=== PATIENT | female | born 2000 | race American Indian/Alaskan Native ===

== ENCOUNTER 2019-08-12 14:00 | Emergency (ER) | payer SELFPAY ==
--- NOTE | 2019-08-12 14:42 | Emergency Department Report ---
Blank Doc - Documentation Documentation: 18-year-old female that presents with vaginal bleeding. Not sure if she is pr egnanat or not. This initial assessment/diagnostic orders/clinical plan/treatment(s) is/are subject to change based on patient's health status, clinical progression and re- assessment by fellow clinical providers in the ED. Further treatment and workup at subsequent clinical providers discretion. Patient/guardians urged not to elope from the ED as their condition may be serious if not clinically assessed and managed. Initial orders include: 1- Patient sent to [facility] for further evaluation and treatment 2- UA 3- labs
[2019-08-12 15:27] LABS: Basophils # (Auto) 0.1 K/mm3 (0.0-0.1); Basophils % (Auto) 0.9 % (0.0-1.8); Eosinophils # (Auto) 0.4 K/mm3 (0.0-0.4); Eosinophils % (Auto) 5.8 % (0.0-4.3); Hematocrit 37.1 % (30.3-42.9); Hemoglobin 11.9 gm/dl (10.1-14.3); Lymphocytes # (Auto) 3.1 K/mm3 (1.2-5.4); Lymphocytes % (Auto) 41.4 % (13.4-35.0); Mean Corpuscular HGB Conc 32 % (30-34); Mean Corpuscular Volume 75 fl (79-97); Monocytes # (Auto) 0.6 K/mm3 (0.0-0.8); Monocytes % (Auto) 8.1 % (0.0-7.3); Platelet Count 369 K/mm3 (140-440); Red Blood Count 4.92 M/mm3 (3.65-5.03); Red Cell Distribution Width 17.8 % (13.2-15.2)
[2019-08-12 15:54] LABS: Bacteria,Urine 1+ /HPF (Negative); Bilirubin,Urine NEG (Negative); Blood,Urine LG (Negative); Color,Urine Yellow (Yellow); Mucus,Urine FEW /HPF; Protein,Urine <15 mg/dL mg/dL (Negative); Urobilinogen,Urine < 2.0 mg/dL (<2.0)
--- NOTE | 2019-08-12 16:57 | Emergency Department Report ---
ED Female HPI - General Chief complaint: Vaginal Bleeding Stated complaint: POSS MISCARRAGE Time Seen by Provider: 08/12/19 14:38 Source: patient Mode of arrival: Ambulatory Limitations: No Limitations - History of Present Illness Initial comments: 18-year-old female that presents with vaginal bleeding. Not sure if she is or not. Patient last menstrual period was 06/16/2019. Patient is 2 para 1. Patient's currently not on control. Patient reports that this morning she started having mild pelvic cramping started bleeding. MD Complaint: vaginal bleeding, pelvic pain (cramping) -: This morning Location: suprapubic Radiation: non-radiating Severity: mild Quality: cramping Consistency: intermittent Improves with: none Worsens with: none Are you Now?: No Last Menstrual Period: 06/16/19 EDC: 03/22/20 Associated Symptoms: vaginal bleeding, abdominal pain. denies: vaginal discharge, nausea/vomiting, fever/chills, headaches, loss of appetite, dysuria, hematuria - Related Data Sexually active: Yes : 2 Para: 1 Previous Rx's Medication Instructions Recorded Last Taken Type Nitrofurantoin [place]/M-Cryst 100 mg PO Q12HR #20 capsule 08/12/19 Unknown Rx [Macrobid CAP] Allergies Allergy/AdvReac Type Severity Reaction Status Date / Time No Known Allergies Allergy Unverified 08/12/19 14:03 ED Review of Systems ROS: Stated complaint: POSS MISCARRAGE Other details as noted in HPI Comment: All other systems reviewed and negative ED Past Medical Hx - Past Medical History Previous Medical History?: No - Surgical History Past Surgical History?: No - Social History Smoking Status: Never Smoker Substance Use Type: None - Medications Home Medications: Home Medications Medication Instructions Recorded Confirmed Last Taken Type Nitrofurantoin [place]/M-Cryst 100 mg PO Q12HR #20 capsule 08/12/19 Unknown Rx [Macrobid CAP] ED Physical Exam - General Limitations: No Limitations General appearance: alert, in no apparent distress - Head Head exam: Present: atraumatic, normocephalic - Eye Eye exam: Present: normal appearance - ENT ENT exam: Present: mucous membranes moist - Extremities Exam Extremities exam: Present: normal inspection - Back Exam Back exam: Present: normal inspection, full ROM - Neurological Exam Neurological exam: Present: alert, oriented X3, normal gait - Psychiatric Psychiatric exam: Present: normal affect, normal mood - Skin Skin exam: Present: warm, dry, intact, normal color. Absent: rash ED Medical Decision Making - Lab Data Result diagrams: 08/12/19 15:13 Laboratory Tests 08/12/19 08/12/19 08/12/19 15:13 15:13 Unknown WBC 7.6 RBC 4.92 Hgb 11.9 Hct 37.1 MCV 75 L MCH 24 L MCHC 32 RDW 17.8 H Plt Count 369 Lymph % (Auto) 41.4 H [place] % (Auto) 8.1 H Eos % (Auto) 5.8 H Baso % (Auto) 0.9 Lymph # 3.1 [place] # 0.6 Eos # 0.4 Baso # 0.1 Seg Neutrophils % 43.8 Seg Neutrophils # 3.3 HCG, Quant < 2 Urine Color Yellow Urine Turbidity Cloudy Urine pH 6.0 Ur Specific [place] 1.017 Urine Protein <15 mg/dl Urine Glucose (UA) Neg Urine Ketones Neg Urine Blood Lg Urine Nitrite Neg Urine Bilirubin Neg Urine Urobilinogen < 2.0 Ur Leukocyte Esterase Lg Urine WBC (Auto) 17.0 H Urine RBC (Auto) 8.0 U Epithel Cells (Auto) 14.0 H Urine Bacteria (Auto) 1+ Urine Mucus Few Urine Yeast (Budding) 1+ - Medical Decision Making 18-year-old female that presents with vaginal bleeding. Not sure if she is or not. Patient last menstrual period was 06/16/2019. Patient is 2 para 1. Patient's currently not on control. Patient reports that this morning she started having mild pelvic cramping started bleeding. patient has a negative test. Urinalysis looks like she may have a UTI we will treat for that. Critical care attestation.: If time is entered above; I have spent that time in minutes in the direct care of this critically ill patient, excluding procedure time. ED Disposition Clinical Impression: UTI (urinary tract infection), Menstrual period late Disposition: TO HOME OR SELFCARE Is pt being admited?: No Does the pt Need Aspirin: No Condition: Stable Instructions: Urinary Tract Infection in Women (ED) Prescriptions: Nitrofurantoin [place]/M-Cryst [Macrobid CAP] 100 mg PO Q12HR #20 capsule Referrals: [facility] [Provider Group] - 3-5 Days [facility] [Provider Group] - 3-5 Days
== END 2019-08-12 17:13 | disposition home or self-care (01) ==
LOC: ED 14:00
DX: N91.2 Amenorrhea, unspecified (principal); N39.0 Urinary tract infection, site not specified; Z79.899 Other long term (current) drug therapy
CPT/HCPCS: 36415; 81001; 84702; 85025; 87086

== ENCOUNTER 2020-06-13 15:07 | Inpatient (IN) | payer MEDICAID ==
[2020-06-13] MEDS ORDERED: LIDOCAINE (2%) 20 MG/1 ML VIAL 20 ML MDV INFILTRATI ONE (16:12)
[2020-06-13] MEDS ORDERED: fentaNYL 100 MCG/2 ML INJ IV PRN (16:12)
[2020-06-13] MEDS ORDERED: ePHEDrine SULFATE 50 MG/1 ML INJ IV PRN (16:12)
[2020-06-13] MEDS ORDERED: MINERAL OIL 30 ML ORAL LIQD PO PRN (16:12)
[2020-06-13] MEDS ORDERED: TERBUTALINE 1 MG/1 ML INJ SUB-Q PRN (16:12)
[2020-06-13] MEDS ORDERED: AMPICILLIN/NS 2 GM/100 ML 2 GM/100 ML BAG IV ONE (16:12)
--- NOTE | 2020-06-13 16:23 | History and Physical Report ---
History of Present Illness Date of examination: 06/13/20 Date of admission: 06/13/2020 Chief complaint: Contractions History of present illness: 19 year old presents to L&D complaining of contractions since 06:00 am today. Patient denies leaking of water or vaginal bleeding. Patient reports active movement. Patient states she receives care at [facility]; no records are available. EDC is 06/20/2020 by her self report. Patient denies any complications during this . Patient denies any health problems. labs were drawn upon admission. 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 denies: gonorrhea, hepatitis B, hepatitis C, herpes, HIV, syphilis, trichomonas Family/Genetic History: none Social history: lives with family, full code. denies: smoking, alcohol abuse, prescription drug abuse, IV drug use - Obstetrical History Expected Date of Delivery: 06/20/20 Actual Gestation: 39 Week(s) 0 Day(s) : 4 Para: 1 Hx # Term Pregnancies: 1 Number of Pregnancies: 0 Spontaneous Abortions: 2 Induced : 0 Number of Living Children: 1 Medications and Allergies Allergies Allergy/AdvReac Type Severity Reaction Status Date / Time No Known Allergies Allergy Unverified 08/12/19 14:03 Home Medications Medication Instructions Recorded Confirmed Last Taken Type Nitrofurantoin [place]/M-Cryst 100 mg PO Q12HR #20 capsule 08/12/19 Unknown Rx [Macrobid CAP] Active Meds: Active Medications Ephedrine Sulfate (Ephedrine Sulfate) 10 mg IV Q2M PRN PRN Reason: Hypotension Fentanyl (Sublimaze) 100 mcg IV Q2H PRN PRN Reason: Pain,Severe (7-10) LABOR PAIN Lactated Ringer's (Lactated Ringers) 1,000 mls @ 125 mls/hr IV DIRECT CLARISA Oxytocin/Sodium Chloride (Pitocin/Ns 30 Unit/500ml) 30 units in 500 mls @ 40 mls/hr IV TITR CLARISA; Protocol Ampicillin Sodium (Ampicillin/Ns 2 Gm/100 Ml) 2 gm in 100 mls @ 100 mls/hr IV ONCE ONE; Protocol Stop: 06/13/20 17:11 Ampicillin Sodium (Ampicillin/Ns 1 Gm/50 Ml) 1 gm in 50 mls @ 100 mls/hr IV Q 4HR CLARISA; Protocol Lidocaine (Xylocaine 2%) 20 ml INFILTRATI ONCE ONE Stop: 06/13/20 16:13 Mineral Oil (Mineral Oil) 30 ml PO QHS PRN PRN Reason: Constipation Terbutaline Sulfate (Brethine) 0.25 mg SUB-Q ONCE PRN PRN Reason: Hyperstimulation/Hypertonicity Review of Systems All systems: negative (contractions) - Vital Signs Vital signs: Vital Signs Pulse Ox 100 06/13/20 15:37 Temp Pulse Resp BP Pulse Ox 98.4 F 92 H 18 133/74 100 06/13/20 15:38 06/13/20 16:15 06/13/20 15:38 06/13/20 15:38 06/13/20 16:15 - Physical Exam Abdomen: Positive: normal appearance, soft. Negative: distention, tenderness, guarding, rigidity Genitourinary (Female): Positive: normal external genitalia, normal perenium. Negative: perineal/vulvar lesions (no lesions seen on careful exam with bright light) Vagina: Positive: normal moisture Uterus: Positive: enlarged. Negative: tender Anus/Rectum: Positive: normal perianal skin Extremities: Positive: normal. Negative: tenderness, edema - Obstetrical FHR: category 1 Uterine Contraction Monitor Mode: External Cervical Dilatation: 4 Cervical Effacement Percentage: 70 station: -3 Uterine Contraction Pattern: Regular Uterine Contraction Intensity: Moderate Results All other labs normal. Assessment and Plan A: at 39 weeks gestation. Active labor. GBS positive per patient report. No records available. P: Admit. EFM. Draw labs. Request records. GBS prophylaxis.
[2020-06-13] MEDS: LACTATED RINGERS 1,000 ML IV SCH (16:45)
[2020-06-13] MEDS ORDERED: OXYTOCIN DRIP 30 UNITS/500 ML BAG IV SCH (17:00)
[2020-06-13 17:06] LABS: Hematocrit 27.5 % (30.3-42.9); Hemoglobin 8.6 gm/dl (10.1-14.3); Mean Corpuscular HGB Conc 31 % (30-34); Platelet Count 223 K/mm3 (140-440); Red Cell Distribution Width 17.4 % (13.2-15.2)
[2020-06-13 17:07] LABS: Mean Corpuscular Volume 69 fl (79-97)
[2020-06-13 17:32] LABS: Hepatitis C Virus Antibody Non-Reactive (NonReactive)
[2020-06-13] MEDS: AMPICILLIN/NS 1 GM/50 ML 1 GM/50 ML BAG IV SCH (20:29)
[2020-06-14] MEDS: AMPICILLIN/NS 1 GM/50 ML 1 GM/50 ML BAG IV SCH ×2 (00:09→04:53)
[2020-06-14] MEDS: LACTATED RINGERS 1,000 ML IV SCH (00:57)
--- NOTE | 2020-06-14 04:28 | Anesthesia Consultation ---
Anesthesia Consult and Med Hx Date of service: 06/14/20 - Airway Anesthetic Teeth Evaluation: Good ROM Head & Neck: Adequate Mental/Hyoid Distance: Adequate Mallampati Class: Class II Intubation Access Assessment: Probably Good - Pulmonary Exam CTA: Yes - Cardiac Exam Cardiac Exam: RRR - Pre-Operative Health Status ASA Pre-Surgery Classification: ASA2 Proposed Anesthetic Plan: Epidural - Pulmonary Hx Smoking: No Hx Asthma: No COPD: No Hx Pneumonia: No Hx Sleep Apnea: No - Cardiovascular System Hx Hypertension: No Hx Heart Attack/AMI: No Hx Angina: No - Central Nervous System Hx Seizures: No Hx Psychiatric Problems: No - Gastrointestinal Hx Gastroesophageal Reflux Disease: No - Endocrine Hx Renal Disease: No Hx End Stage Renal Disease: No Hx Insulin Dependent Diabetes: No Hx Non-Insulin Dependent Diabetes: No Hx Hypothyroidism: No Hx Hyperthyroidism: No - Hematic Hx Anemia: No Hx Sickle Cell Disease: No - Other Systems Hx Alcohol Use: No
[2020-06-14] MEDS ORDERED: NalbUPHINE 10 MG/1 ML INJ IV PRN (04:29)
[2020-06-14] MEDS ORDERED: ONDANSETRON 4 MG/2 ML INJ IV PRN (04:29)
[2020-06-14] MEDS ORDERED: NALOXONE 2 MG/2 ML INJ IV PRN (04:29)
[2020-06-14] MEDS ORDERED: diphenhydrAMINE 50 MG/ML VIAL IV PRN (04:29)
--- NOTE | 2020-06-14 04:30 | Progress Note ---
Labor Epidural - Labor Epidural Start Time: 04:15 Stop Time: 04:30 Performed by:: COTY ROWE ([facility]) Procedure: Patient is requesting a laboring epidural for laboring pain. Patient IDed, H&P reviewed, all questions and concerns were answered, and consent was signed. Timeout was performed at bedside. Patient in sitting position. Sterile prep and drape was performed. 3ml of 1% lidocaine skin wheal at L[3]- L [4]. 18- gauge Touhy epidural needle was advanced to loss of resistance with air technique. Negative CSF negative blood. Epidural catheter advanced to [12] centimeters. [-] Aspiration [-] test dose. Sterile dressing applied. Patient tolerated procedure.
[2020-06-14] MEDS ORDERED: fentaNYL-BUPIV 2 MCG/ML-0.125% 200 MCG/100 ML BAG EPIDURAL SCH (05:00)
[2020-06-14] MEDS ORDERED: WITCH HAZEL/ GLYCERIN PAD TP PRN (07:12)
[2020-06-14] MEDS ORDERED: LANOLIN/ZINC/DIMETHICONE (LANSINOH) 7 GM TP PRN (07:12)
--- NOTE | 2020-06-14 08:59 | Procedure Note ---
OB Delivery Note - Delivery Date of Delivery: 06/14/20 Surgeon: SYLVIA AG Estimated blood loss: 200cc - Vaginal Delivery presentation: vertex Delivery position: OA Intrapartum events: none Delivery induction: none Delivery monitor: external FHT, external uterine Route of delivery: Delivery placenta: spontaneous Delivery cord: 3 umbilical vessels Episiotomy: none Delivery laceration: 1st degree Delivery repair: vicryl Anesthesia: epidural Delivery comments: Spontaneous vaginal delivery at 06:38 of liveborn male weighing 2.881 kg over 1st degree perineal laceration with apgars of 8/9. Epidural anesthesia. Delivery of baby was atraumatic; no nuchal cord. Baby placed skin to skin with mom immediately after delivery. Spontaneous cry and respirations. Baby suctioned with bulb syringe and dried with warm blankets. 3 vessel cord double clamped and cut. Spontaneous delivery of intact placenta and membranes by weinstein mechanism. EBL 200 cc. Pitocin to IV fluids after delivery of placenta. Fundus firm and midline. Small first degree perineal laceration repaired with 3-0 vicryl in usual sterile fashion. No other lacerations seen. Vaginal sweep negative. Sponge count correct. Mother and baby stable.
--- NOTE | 2020-06-14 10:17 | Post Anesthesia Evaluation ---
- Post Anesthesia Evaluation Patient Participated: Yes Airway Patent: Yes Stable Respiratory Function: Yes Nausea/Vomiting: No Temp > 96.8F: Yes Pain Manageable: Yes Adequeate Hydration: Yes Anesthesia Complications: No Block Receding Appropriately: Yes Patient on Ventilator: No
[2020-06-14] MEDS: FERROUS SULFATE 325 MG TAB PO SCH ×2 (10:21→21:28)
[2020-06-14] MEDS: IBUPROFEN 600 MG TAB PO SCH ×2 (10:24→18:25)
[2020-06-14] MEDS: HYDROcodone/ACETAMINOPHEN 5-325 MG TAB PO PRN ×2 (12:12→21:28)
[2020-06-14 19:29] LABS: Hematocrit 26.4 % (30.3-42.9); Hemoglobin 8.4 gm/dl (10.1-14.3)
[2020-06-14] MEDS ORDERED: MAGNESIUM HYDROXIDE (MOM) ORAL LIQD UDC PO PRN (22:00)
[2020-06-15] MEDS: IBUPROFEN 600 MG TAB PO SCH (05:32)
[2020-06-15] MEDS ORDERED: DIPHtheria,PERTUSSIS(ACELL),TETANUS VACCINE/PF 0.5 ML VIAL IM ONE (06:00)
[2020-06-15] MEDS ORDERED: IRON DEXTRAN COMPLEX 100 MG/2 ML INJ IM SCH (10:40)
[2020-06-15] MEDS: FERROUS SULFATE 325 MG TAB PO SCH (12:14)
[2020-06-15] MEDS: HYDROcodone/ACETAMINOPHEN 5-325 MG TAB PO PRN (12:15)
--- NOTE | 2020-06-15 12:34 | Progress Note ---
Assessment and Plan A: PP Day 1 Asymptomatic Anemia P: Follow routine orders Infed 100mg IM x 1 dose Continue FeSO4 325mg PO BID at home D/C home today per patient request RTO in 6 weeks Subjective - Subjective Date of service: 06/15/20 Patient reports: appetite normal, voiding normally, pain well controlled, flatus, ambulating normally [place]: doing well, nursing well Objective - Vital Signs Latest vital signs: Vital Signs Temp Pulse Resp BP BP Pulse Ox 06/15/20 08:06 98.0 F 67 18 131/88 98 06/15/20 04:39 98.6 F 70 16 114/78 06/14/20 23:58 98.0 F 73 18 115/50 96 06/14/20 20:06 98.0 F 81 18 124/78 100 06/14/20 15:41 97.6 F 82 20 124/74 97 Intake and Output 06/14/20 06/15/20 06/15/20 22:59 06:59 14:59 Intake Total 540 600 Output Total 300 Balance 240 600 Intake: Oral 540 Intake, Free Water 600 Output: Urine 300 Void 300 Other: Total, Intake Amount 300 Total, Output Amount 300 # Voids Void 1 1 - Exam Breasts: Present: normal Cardiovascular: Present: Regular rate, Normal S1, Normal S2 Lungs: Present: Clear to auscultation, Normal air movement Abdomen: Present: normal appearance, soft, normal bowel sounds Uterus: Present: normal, firm, fundal height below umbilicus Extremities: Present: normal - Labs Labs: Abnormal lab results 06/14/20 Range/Units 18:49 Hgb 8.4 L (10.1-14.3) gm/dl Hct 26.4 L (30.3-42.9) %
--- NOTE | 2020-06-15 12:36 | Discharge Summary ---
Providers - Providers Date of Admission: 06/13/20 16:12 Date of discharge: 06/15/20 Attending physician: EBONY HOPKINS Primary care physician: EBONY HOPKINS Hospitalization Reason for admission: active labor Delivery: Episiotomy: none Laceration: 1st degree Other procedures: none complications: none Discharge diagnosis: IUP at term delivered [place] baby: male Condition at discharge: Good Disposition: DC-01 TO HOME OR SELFCARE Plan - Provider Discharge Summary Activity: routine, no sex for 6 weeks, no heavy lifting 4 weeks, no strenuous exercise Diet: routine Instructions: routine Additional instructions: [] Smoking cessation referral if applicable(refer to patient education folder for contact #) [] Refer to [facility]'s [facility] Booklet Call your doctor immediately for: * Fever > 100.5 * Heavy vaginal bleeding ( >1 pad per hour) * Severe persistent headache * Shortness of breath * Reddened, hot, painful area to leg or breast * Drainage or odor from incision. * Keep incision clean and dry at all times and follow doctor's instructions regarding bathing/showering - Follow up plan Follow up: EBONY HOPKINS MD [Primary Care Provider] - 6 Weeks
[2020-06-15 16:59] VITALS: BP 117/75
== END 2020-06-15 18:00 | disposition home or self-care (01) | DRG 775 ==
LOC: TRG 15:07 → APU 15:08 → LD 16:12 → TRG 16:56 → OB 06-14 09:32
PROVIDERS: ADMIT Obstetrics & Gynecology; ATTEND Obstetrics & Gynecology
PROC: 10E0XZZ Delivery of Products of Conception, External Approach (ICD-10-PCS; principal; 2020-06-14)
PROC: 0HQ9XZZ Repair Perineum Skin, External Approach (ICD-10-PCS; 2020-06-14)
PROC: 3E0R3BZ Introduction of Anesthetic Agent into Spinal Canal, Percutaneous Approach (ICD-10-PCS; 2020-06-14)
PROC: 00HU33Z Insertion of Infusion Device into Spinal Canal, Percutaneous Approach (ICD-10-PCS; 2020-06-14)
PROC: 3E0234Z Introduction of Serum, Toxoid and Vaccine into Muscle, Percutaneous Approach (ICD-10-PCS; 2020-06-15)
DX: O99.824 Streptococcus B carrier state complicating childbirth (principal); Z37.0 Single live birth; Z3A.39 39 weeks gestation of pregnancy; Z23 Encounter for immunization; Z20.828 Contact with and (suspected) exposure to other viral communicable diseases; O70.0 First degree perineal laceration during delivery; O90.81 Anemia of the puerperium; D64.9 Anemia, unspecified
CPT/HCPCS: 36415; 85014; 85018; 85027; 86592; 86706; 86762; 86803; 86850; 86900; 86901; 87806; 90715; G0378; A6250; J0290; J3010; J7120; U0003

== ENCOUNTER 2021-10-25 08:47 | Emergency (ER) | payer OTHER, MEDICAID ==
[2021-10-25] MEDS ORDERED: IPRATROPIUM/ALBUTEROL SULFATE 3 ML AMPUL.NEB IH ONE (12:59)
[2021-10-25] MEDS ORDERED: ACETAMINOPHEN W/CODEINE 300-30 MG TAB PO ONE (13:00)
[2021-10-25] MEDS ORDERED: methylPREDNISolone Sod Succinate 125 MG/2 ML INJ IM ONE (13:00)
[2021-10-25] MEDS ORDERED: BENZONATATE 100 MG CAP PO ONE (13:00)
--- NOTE | 2021-10-25 13:34 | XRay Report ---
CHEST 2 VIEWS INDICATION / CLINICAL INFORMATION: sob, fever. COMPARISON: None available. FINDINGS: SUPPORT DEVICES: None. HEART / MEDIASTINUM: No significant abnormality. LUNGS / PLEURA: No significant pulmonary or pleural abnormality. No pneumothorax. ADDITIONAL FINDINGS: No significant additional findings. IMPRESSION: 1. No acute findings. Signer Name: Huang Miguel DO Signed: 10/25/2021 1:30 PM Workstation Name: [id number]
--- NOTE | 2021-10-25 14:01 | Emergency Department Report ---
- General Chief Complaint: Chest Pain Stated Complaint: CHEST PAIN/SOB Time Seen by Provider: 10/25/21 12:35 Source: patient Mode of arrival: Ambulatory Limitations: No Limitations - History of Present Illness Initial Comments: 20-year-old black female with no past medical history presents to the emergency department for evaluation of 1 week history of cough. She states that she has had a nonproductive cough for the past week then this morning she developed chest pain with shortness of breath. She states that she has had intermittent fever. She states that she has not taken any medication at home. She denies any sick contacts. MD Complaint: fever, cough -: Gradual, week(s) (1) Severity: severe Severity scale (0 -10): 10 Quality: aching Consistency: intermittent Worsens With: other Associated Symptoms: fever, myalgias, rhinorrhea, nasal congestion, cough, chest pain, shortness of breath. denies: chills, diaphoresis, headache, sore throat, stiff neck, abdominal pain, nausea, vomiting, diarrhea, dysuria, rash, confusion, weight loss, epistaxis, hoarseness, ear pain - Related Data Previous Rx's Medication Instructions Recorded Last Taken Type Nitrofurantoin [place]/M-Cryst 100 mg PO Q12HR #20 capsule 08/12/19 Unknown Rx [Macrobid CAP] Albuterol Mdi (or & Nicu Only) 2 puff IH QID PRN #8.5 gram 10/25/21 Unknown Rx [ProAir HFA Inhaler] Benzonatate [Tessalon Perles] 100 mg PO Q8HR #21 cap 10/25/21 Unknown Rx Prednisone [predniSONE 10 mg 10 mg PO .TAPER #1 pack 10/25/21 Unknown Rx (6-Day Pack, 21 Tabs)] guaiFENesin/CODEINE [Robitussin AC] 10 ml PO TID PRN #120 ml 10/25/21 Unknown Rx Allergies Allergy/AdvReac Type Severity Reaction Status Date / Time No Known Allergies Allergy Unverified 08/12/19 14:03 ED Review of Systems ROS: Stated complaint: CHEST PAIN/SOB Other details as noted in HPI Comment: All other systems reviewed and negative Constitutional: fever ENT: congestion. denies: throat pain Respiratory: cough, shortness of breath. denies: SOB at rest Cardiovascular: chest pain. denies: palpitations, dyspnea on exertion, orthopnea, edema, syncope, paroxysmal nocturnal dyspnea Gastrointestinal: denies: abdominal pain, nausea, vomiting, diarrhea, hematemesis, melena, hematochezia Genitourinary: denies: urgency, dysuria, frequency, hematuria, discharge Musculoskeletal: denies: back pain Skin: denies: rash, lesions Neurological: headache. denies: weakness, numbness, paresthesias, abnormal gait, vertigo ED Past Medical Hx - Past Medical History Hx Hypertension: No Hx Heart Attack/AMI: No Hx Congestive Heart Failure: No Hx Diabetes: No Hx Deep Vein Thrombosis: No Hx Renal Disease: No Hx Sickle Cell Disease: No Hx Seizures: No Hx Asthma: No Hx COPD: No Hx HIV: No - Social History Smoking Status: Never Smoker - Medications Home Medications: Home Medications Medication Instructions Recorded Confirmed Last Taken Type Nitrofurantoin [place]/M-Cryst 100 mg PO Q12HR #20 capsule 08/12/19 Unknown Rx [Macrobid CAP] Albuterol Mdi (or & Nicu Only) 2 puff IH QID PRN #8.5 gram 10/25/21 Unknown Rx [ProAir HFA Inhaler] Benzonatate [Tessalon Perles] 100 mg PO Q8HR #21 cap 10/25/21 Unknown Rx Prednisone [predniSONE 10 mg 10 mg PO .TAPER #1 pack 10/25/21 Unknown Rx (6-Day Pack, 21 Tabs)] guaiFENesin/CODEINE [Robitussin AC] 10 ml PO TID PRN #120 ml 10/25/21 Unknown Rx ED Physical Exam - General Limitations: No Limitations General appearance: alert, in no apparent distress - Head Head exam: Present: atraumatic, normocephalic - Eye Eye exam: Present: normal appearance. Absent: conjunctival injection - ENT ENT exam: Absent: normal exam (bilateral nasal mucosal edema), normal orophraynx (erythema to posterior orophraynx) - Neck Neck exam: Present: normal inspection. Absent: lymphadenopathy - Respiratory Respiratory exam: Present: normal lung sounds bilaterally, chest wall tenderness. Absent: respiratory distress, wheezes, rales, rhonchi, stridor - Cardiovascular Cardiovascular Exam: Present: tachycardia, normal heart sounds - GI/Abdominal GI/Abdominal exam: Present: soft, normal bowel sounds. Absent: distended, tenderness, guarding, rebound, rigid - Extremities Exam Extremities exam: Present: normal inspection, normal capillary refill. Absent: pedal edema, joint swelling, calf tenderness - Back Exam Back exam: Present: normal inspection. Absent: CVA tenderness (R), CVA tenderness (L) - Neurological Exam Neurological exam: Present: alert, oriented X3, normal gait, reflexes normal. Absent: motor sensory deficit - Psychiatric Psychiatric exam: Present: normal affect, normal mood - Skin Skin exam: Present: warm, dry, intact, normal color ED Course Vital Signs 10/25/21 10/25/21 10/25/21 09:22 13:47 14:28 Temperature 98.9 F Pulse Rate 107 H 85 Pulse Rate [ 110 H Bilateral Throughout] Respiratory 20 18 Rate Respiratory 20 Rate [Bilateral Throughout] Blood Pressure 161/88 157/80 [Right] O2 Sat by Pulse 95 95 Oximetry ED Medical Decision Making - EKG Data Interpretation: no acute changes, normal EKG - Radiology Data Radiology results: report reviewed, image reviewed CXR: FINDINGS: SUPPORT DEVICES: None. HEART / MEDIASTINUM: No significant abnormality. LUNGS / PLEURA: No significant pulmonary or pleural abnormality. No pneumothorax. ADDITIONAL FINDINGS: No significant additional findings. IMPRESSION: 1. No acute findings. - Medical Decision Making 20-year-old black female with no past medical history presents to the emergency department for evaluation of 1 week history of cough. She states that she has had a nonproductive cough for the past week then this morning she developed chest pain with shortness of breath. She states that she has had intermittent fever. She states that she has not taken any medication at home. She denies any sick contacts. EKG and chest xray without any acute abnormalities. Symptoms improved after medications. Patient will be d/batool home with treatment for uri with cough, congestion and wheezing. She is advised to take medications as prescribed and follow up with pcp if no improvement or worsening symptoms. Critical care attestation.: If time is entered above; I have spent that time in minutes in the direct care of this critically ill patient, excluding procedure time. ED Disposition Clinical Impression: URI with cough and congestion, Wheezing Disposition: HOME / SELF CARE / HOMELESS Is pt being admited?: No Does the pt Need Aspirin: No Condition: Stable Instructions: Cough, Adult, [id number], Upper Respiratory Infection, Adult, [id number] Additional Instructions: Take medications as prescribed. Follow-up with primary care provider as needed. Return to the emergency department as needed Prescriptions: Prednisone [predniSONE 10 mg (6-Day Pack, 21 Tabs)] 10 mg PO .TAPER #1 pack Albuterol Mdi (or & Nicu Only) [ProAir HFA Inhaler] 2 puff IH QID PRN #8.5 gram PRN Reason: Shortness Of Breath guaiFENesin/CODEINE [Robitussin AC] 10 ml PO TID PRN #120 ml PRN Reason: Cough Benzonatate [Tessalon Perles] 100 mg PO Q8HR #21 cap Referrals: PRIMARY CARE, [Primary Care Provider] - 3-5 Days Forms: Work/School Release Form(ED) Time of Disposition: 14:03
[2021-10-25 14:32] VITALS: BP 157/80
--- NOTE | 2021-10-28 19:46 | Electrocardiograph Report ---
[facility] Test Date: 2021-10-25 Test Time: 09:46:34 Pat Name: JADE SAINI Department: Room: Gender: F Sales Engineering Manager: CHARLIE : 2000 Requested By: ED DOC Order Number: [id number] Reading MD: Facundo Auguste Measurements Intervals [place] Rate: 92 P: 112 AL: 190 QRS: 167 QRSD: 82 T: 169 QT: 335 QTc: 415 Interpretive Statements Right and left arm electrode reversal, interpretation assumes no reversal Sinus rhythm Right axis deviation Abnormal T, consider ischemia, diffuse leads No previous ECG available for comparison Electronically Signed On 10-28-2021 19:45:45 EDT by Facundo Auguste
== END 2021-10-25 14:33 | disposition home or self-care (01) ==
LOC: ED 08:47
DX: J06.9 Acute upper respiratory infection, unspecified (principal); R06.2 Wheezing
CPT/HCPCS: 71046; 93005; 94640; 96372; 99283; J2930; 94644

== ENCOUNTER 2021-11-08 03:38 | Emergency (ER) | payer OTHER, MEDICAID ==
[2021-11-08] MEDS ORDERED: predniSONE 20 MG TAB PO ONE (03:52)
[2021-11-08] MEDS ORDERED: IPRATROPIUM/ALBUTEROL SULFATE 3 ML AMPUL.NEB IH ONE (03:52)
[2021-11-08] MEDS ORDERED: ALBUTEROL 2.5 MG/3 ML NEBU IH ONE (04:07)
[2021-11-08] MEDS ORDERED: IPRATROPIUM 0.02% NEBU 2.5 ML IH ONE (04:07)
--- NOTE | 2021-11-08 04:27 | XRay Report ---
CHEST 1 VIEW 11/08/2021 4:05 AM INDICATION / CLINICAL INFORMATION: sob. COMPARISON: 2 views of the chest from 10/25/2021. FINDINGS: SUPPORT DEVICES: None. HEART / MEDIASTINUM: No significant abnormality. LUNGS / PLEURA: No significant pulmonary abnormality. No significant pleural effusion. No pneumothora x. ADDITIONAL FINDINGS: No significant additional findings. IMPRESSION: 1. No acute abnormality of the chest. Signer Name: Margarito Bauman MD Signed: 11/08/2021 4:23 AM Workstation Name: [id number]
[2021-11-08] MEDS ORDERED: ACETAMINOPHEN 325 MG TAB PO ONE (06:14)
[2021-11-08] MEDS ORDERED: IBUPROFEN 400 MG TAB PO ONE (06:14)
--- NOTE | 2021-11-08 06:17 | Emergency Department Report ---
ED General Adult HPI - General Chief complaint: Dyspnea/Respdistress Stated complaint: Cough, wheezing, shortness of breath and muscle pain Time Seen by Provider: 11/08/21 06:07 Source: patient, RN notes reviewed Mode of arrival: Ambulatory Limitations: No Limitations - History of Present Illness Initial comments: This is a pleasant 20-year-old female who states that she is not . She is also not COVID-19 vaccinated. She recently relocated to [place] from [facility]. She complains of chest wall tightness, cough, wheezing and shortness of breath. Reports fever recently. Was given albuterol, steroids prior to my personal evaluation. Patient denies travel, surgery, immobilization, DVT/PE risk factors. She reports that she does not smoke cigarettes or consume any smoke products. She feels much improved after her initial therapy. -: week(s) Location: chest, back Quality: aching Consistency: constant Improves with: medication, rest Worsens with: movement, other (Movement, palpation) - Related Data Previous Rx's Medication Instructions Recorded Last Taken Type Nitrofurantoin [place]/M-Cryst 100 mg PO Q12HR #20 capsule 08/12/19 Unknown Rx [Macrobid CAP] Albuterol Mdi (or & Nicu Only) 2 puff IH QID PRN #8.5 gram 10/25/21 Unknown Rx [ProAir HFA Inhaler] Benzonatate [Tessalon Perles] 100 mg PO Q8HR #21 cap 10/25/21 Unknown Rx Prednisone [predniSONE 10 mg 10 mg PO .TAPER #1 pack 10/25/21 Unknown Rx (6-Day Pack, 21 Tabs)] guaiFENesin/CODEINE [Robitussin AC] 10 ml PO TID PRN #120 ml 10/25/21 Unknown Rx Albuterol Sulfate [Proair 90 mcg IH Q4HR PRN #2 aer.pow.ba 11/08/21 Unknown Rx Respiclick] Cetirizine HCl [Zyrtec 10mg tab] 10 mg PO QDAY #30 tablet 11/08/21 Unknown Rx Fluticasone [Flonase] 1 spray NS QDAY #1 bottle 11/08/21 Unknown Rx predniSONE [Deltasone] 40 mg PO QDAY #8 tab 11/08/21 Unknown Rx Allergies Allergy/AdvReac Type Severity Reaction Status Date / Time No Known Allergies Allergy Unverified 08/12/19 14:03 ED Review of Systems ROS: Stated complaint: CHEST PAIN/SOB Other details as noted in HPI Constitutional: fever Eyes: denies: eye discharge ENT: congestion Respiratory: wheezing Cardiovascular: chest pain (Chest wall pain) Musculoskeletal: arthralgia, myalgia Hematological/Lymphatic: denies: easy bleeding ED Past Medical Hx - Past Medical History Previous Medical History?: No Hx Hypertension: No Hx Heart Attack/AMI: No Hx Congestive Heart Failure: No Hx Diabetes: No Hx Deep Vein Thrombosis: No Hx Renal Disease: No Hx Sickle Cell Disease: No Hx Seizures: No Hx Asthma: No Hx COPD: No Hx HIV: No - Surgical History Past Surgical History?: No - Social History Smoking Status: Never Smoker - Medications Home Medications: Home Medications Medication Instructions Recorded Confirmed Last Taken Type Nitrofurantoin [place]/M-Cryst 100 mg PO Q12HR #20 capsule 08/12/19 Unknown Rx [Macrobid CAP] Albuterol Mdi (or & Nicu Only) 2 puff IH QID PRN #8.5 gram 10/25/21 Unknown Rx [ProAir HFA Inhaler] Benzonatate [Tessalon Perles] 100 mg PO Q8HR #21 cap 10/25/21 Unknown Rx Prednisone [predniSONE 10 mg 10 mg PO .TAPER #1 pack 10/25/21 Unknown Rx (6-Day Pack, 21 Tabs)] guaiFENesin/CODEINE [Robitussin AC] 10 ml PO TID PRN #120 ml 10/25/21 Unknown Rx Albuterol Sulfate [Proair 90 mcg IH Q4HR PRN #2 aer.pow.ba 11/08/21 Unknown Rx Respiclick] Cetirizine HCl [Zyrtec 10mg tab] 10 mg PO QDAY #30 tablet 11/08/21 Unknown Rx Fluticasone [Flonase] 1 spray NS QDAY #1 bottle 11/08/21 Unknown Rx predniSONE [Deltasone] 40 mg PO QDAY #8 tab 11/08/21 Unknown Rx ED Physical Exam - General Limitations: No Limitations General appearance: alert, in no apparent distress - Head Head exam: Present: atraumatic, normocephalic - Eye Eye exam: Present: normal appearance, EOMI. Absent: nystagmus - ENT ENT exam: Present: normal exam, normal orophraynx, mucous membranes moist, normal external ear exam - Neck Neck exam: Present: normal inspection, full ROM. Absent: tenderness, meningismus - Respiratory Respiratory exam: Present: normal lung sounds bilaterally, chest wall tenderness. Absent: respiratory distress, wheezes, rales, rhonchi, stridor - Cardiovascular Cardiovascular Exam: Present: regular rate, normal rhythm, normal heart sounds. Absent: bradycardia, tachycardia, irregular rhythm, systolic murmur, diastolic murmur, rubs, gallop - GI/Abdominal GI/Abdominal exam: Present: soft. Absent: distended, tenderness, guarding, rebo und, rigid, pulsatile mass - Extremities Exam Extremities exam: Present: normal inspection, full ROM, other (2+ pulses noted in the bilateral upper and lower extremities. There is no palpable cord. negative Homans sign. Muscular compartments are soft. The pelvis is stable.). Absent: pedal edema, calf tenderness - Back Exam Back exam: Present: normal inspection, muscle spasm. Absent: tenderness, CVA tenderness (R), paraspinal tenderness, vertebral tenderness - Neurological Exam Neurological exam: Present: alert, oriented X3, other (No facial droop. Tongue midline. Extraocular movements intact bilaterally. Facial sensation intact to light touch in V1, V2, V3 distribution bilaterally. 5 and a 5 strength in 4 extremities. Sensation intact to light touch in 4 extremities.). Absent: motor sensory deficit - Psychiatric Psychiatric exam: Present: normal affect, normal mood - Skin Skin exam: Present: warm, dry, intact, normal color. Absent: rash ED Course Vital Signs 11/08/21 11/08/21 11/08/21 03:42 03:45 04:37 Temperature 98.2 F Pulse Rate 109 H 90 Pulse Rate [ Bilateral Throughout] Respiratory 20 18 18 Rate Respiratory Rate [Bilateral Throughout] Blood Pressure 157/105 Blood Pressure 125/87 [Right] O2 Sat by Pulse 97 99 97 Oximetry 11/08/21 11/08/21 11/08/21 05:00 05:37 06:00 Temperature Pulse Rate 92 H 99 H Pulse Rate [ 86 Bilateral Throughout] Respiratory 18 18 Rate Respiratory 20 Rate [Bilateral Throughout] Blood Pressure Blood Pressure 132/81 137/87 [Right] O2 Sat by Pulse 96 98 Oximetry - Pulse Oximetry Interpretation Digit-Finger Initial Pulse Oximetry Readin O2 Sat by Pulse Oximetry: 99 Actions Taken: none ED Medical Decision Making - Lab Data Vital Signs 11/08/21 11/08/21 11/08/21 03:42 03:45 05:37 Temperature 98.2 F Pulse Rate 109 H Pulse Rate [ 86 Bilateral Throughout] Respiratory 20 18 Rate Respiratory 20 Rate [Bilateral Throughout] Blood Pressure 157/105 O2 Sat by Pulse 97 99 Oximetry - EKG Data -: EKG Interpreted by [place] EKG shows normal: sinus rhythm Rate: normal - EKG Data 11/08/21 07:06 The EKG is interpreted at 06: 19 Sinus rhythm, 83 bpm. Normal axis, normal P wave axis, normal intervals, minimal motion artifact, not a STEMI - Radiology Data Radiology results: pending, report reviewed, image reviewed CHEST 1 VIEW 11/08/2021 4:05 AM INDICATION / CLINICAL INFORMATION: sob. COMPARISON: 2 views of the chest from 10/25/2021. FINDINGS: SUPPORT DEVICES: None. HEART / MEDIASTINUM: No significant abnormality. LUNGS / PLEURA: No significant pulmonary abnormality. No significant pleural effusion. No pneumothorax. ADDITIONAL FINDINGS: No significant additional findings. IMPRESSION: 1. No acute abnormality of the chest. Signer Name: Margarito Bauman MD Signed: 11/08/2021 3:23 AM Workstation Name: [id number] - Medical Decision Making Differential diagnosis, including but not limited to: Costochondritis, reactive airways disease, COVID-19 vaccination not done Assessment and plan: 20-year-old female who recently relocated here from [place], presenting to [place] now, with a complaint of cough, wheezing, chest wall tightness, likely secondary to reactive airways disease, likely secondary to allergies. Patient educated as to the natural history of bronchitis/reactive airway disease and allergies. Patient counseled to complete COVID-19 vaccination series. Chest x-ray unremarkable. EKG unremarkable. Patient received albuterol and steroids prior to my personal evaluation. She is not currently tachycardic, tachypneic or hypoxic, she denies DVT/PE risk factors, and she is low risk by Wells criteria. The patient is observed in this department for hours without clinical decompensation. She is stable to be discharged to follow-up as an outpatient. Return precautions reviewed. All questions answered. Critical care attestation.: If time is entered above; I have spent that time in minutes in the direct care of this critically ill patient, excluding procedure time. ED Disposition Clinical Impression: Reactive airway disease, COVID-19 vaccination not done Disposition: 01 HOME / SELF CARE / HOMELESS Is pt being admited?: No Does the pt Need Aspirin: No Condition: Stable Instructions: Asthma, Adult Additional Instructions: As we discussed, patient likely experiencing natural history of costochondritis, and reactive airways disease, secondary to recent relocation to [place], likely secondary to local allergens such as pollen. Symptoms may last anywhere from a few weeks to a few months. Strongly recommend that the patient follow-up with an outpatient primary care doctor to establish outpatient primary care. Patient may take [id number] Tylenol or ibuprofen as needed for physical pain. Patient may take Tylenol, 650 mg by mouth, every 4-6 hours as needed for physical pain, Daily dose should not exceed 3 g per 24 hours. Patient may take ibuprofen, 600 mg by mouth, every 6 hours with food, as needed for physical pain. Please take the steroids, and albuterol as needed and directed. Take Zyrtec as directed. Please return to the emergency room right away with new pain, worsened pain, migration of pain, projectile vomiting, change in mental status, confusion, inability tolerate liquid feeds, new, worsened or different symptoms not present on the initial emergency room evaluation Prescriptions: predniSONE [Deltasone] 40 mg PO QDAY #8 tab Fluticasone [Flonase] 1 spray NS QDAY #1 bottle Albuterol Sulfate [Proair Respiclick] 90 mcg IH Q4HR PRN #2 aer.pow.ba PRN Reason: Wheezing Cetirizine HCl [Zyrtec 10mg tab] 10 mg PO QDAY #30 tablet Referrals: [facility] [Provider Group] - 3-5 Days Forms: Work/School Release Form(ED)
[2021-11-08 07:37] VITALS: BP 136/92
--- NOTE | 2021-11-10 17:44 | Electrocardiograph Report ---
[facility] Test Date: 2021-11-08 Test Time: 06:19:00 Pat Name: JADE SAINI Department: Room: Gender: F Boat Repairer: SHAWN MATTA : 2000 Requested By: WILMER KUMAR Order Number: [id number] Reading MD: Facundo Auguste Measurements Intervals [place] Rate: 83 P: 53 SC: 195 QRS: 29 QRSD: 91 T: 20 QT: 370 QTc: 436 Interpretive Statements Marked sinus arrhythmia Compared to ECG 10/25/2021 09:46:34 Limb leads are malpositioned on the previous EKG Electronically Signed On 11-10-2021 17:44:20 EDT by Facundo Auguste
== END 2021-11-08 07:37 | disposition home or self-care (01) ==
LOC: ED 03:38
DX: J45.901 Unspecified asthma with (acute) exacerbation (principal); Z79.899 Other long term (current) drug therapy
CPT/HCPCS: 71045; 93005; 94640; 94644; 99283

== ENCOUNTER 2022-03-10 18:28 | Emergency (ER) | payer OTHER, MEDICAID ==
[2022-03-10] MEDS ORDERED: methylPREDNISolone Sod Succinate 125 MG/2 ML INJ IV ONE (18:43)
[2022-03-10] MEDS ORDERED: ALBUTEROL 2.5 MG/3 ML NEBU IH ONE ×2 (18:43→19:08)
[2022-03-10] MEDS ORDERED: SODIUM CHLORIDE 0.9% 1000 ML 1,000 ML IV ONE (18:43)
[2022-03-10] MEDS ORDERED: IPRATROPIUM 0.02% NEBU 2.5 ML IH ONE ×2 (18:43→19:08)
[2022-03-10 19:37] LABS: Basophils # (Auto) 0.1 K/mm3 (0.0-0.1); Basophils % (Auto) 0.7 % (0.0-1.8); Eosinophils # (Auto) 0.1 K/mm3 (0.0-0.4); Eosinophils % (Auto) 0.7 % (0.0-4.3); Hematocrit 41.7 % (30.3-42.9); Hemoglobin 13.4 gm/dl (10.1-14.3); Lymphocytes # (Auto) 1.3 K/mm3 (1.2-5.4); Lymphocytes % (Auto) 11.2 % (13.4-35.0); Mean Corpuscular HGB Conc 32 % (30-34); Mean Corpuscular Volume 79 fl (79-97); Monocytes # (Auto) 1.1 K/mm3 (0.0-0.8); Monocytes % (Auto) 9.4 % (0.0-7.3); Platelet Count 351 K/mm3 (140-440); Red Cell Distribution Width 15.5 % (13.2-15.2)
[2022-03-10 20:00] LABS: Alanine Aminotransferase 18 units/L (7-56); Albumin 4.5 g/dL (3.9-5); Blood Urea Nitrogen 8 mg/dL (7-17); Calcium 9.4 mg/dL (8.4-10.2); Hemolysis Index 78
[2022-03-10 20:03] LABS: Creatine Kinase MB 1.6 ng/mL (0.0-4.0)
[2022-03-10 20:04] LABS: BUN/Creatinine Ratio 13
--- NOTE | 2022-03-10 20:09 | XRay Report ---
CHEST 1 VIEW INDICATION / CLINICAL INFORMATION: Dyspnea. FINDINGS: SUPPORT DEVICES: None. HEART / MEDIASTINUM: No significant abnormality. LUNGS / PLEURA: No significant pulmonary or pleural abnormality. No pneumothorax. ADDITIONAL FINDINGS: No significant additional findings. IMPRESSION: 1. No acute findings. Signer Name: Alphonse Almaraz MD Signed: 03/10/2022 8:05 PM Workstation Name: [id number]
--- NOTE | 2022-03-10 20:18 | Emergency Department Report ---
ED Shortness of Breath HPI - General Chief Complaint: Dyspnea/Respdistress Stated Complaint: NOLBERTO/CHEST PAIN Time Seen by Provider: 03/10/22 18:40 Source: patient Mode of arrival: Ambulatory Limitations: No Limitations - History of Present Illness Initial Comments: Patient present with NOLBERTO, and chest pain. pt is known to have wheeze before but no diagnosis of asthma MD Complaint: shortness of breath -: Gradual, days(s) Worsens With: exertion Known History Of: other Associated Symptoms: chest pain Treatments Prior to Arrival: oxygen - Related Data Previous Rx's Medication Instructions Recorded Last Taken Type Nitrofurantoin [place]/M-Cryst 100 mg PO Q12HR #20 capsule 08/12/19 Unknown Rx [Macrobid CAP] Albuterol Mdi (or & Nicu Only) 2 puff IH QID PRN #8.5 gram 10/25/21 Unknown Rx [ProAir HFA Inhaler] Benzonatate [Tessalon Perles] 100 mg PO Q8HR #21 cap 10/25/21 Unknown Rx Prednisone [predniSONE 10 mg 10 mg PO .TAPER #1 pack 10/25/21 Unknown Rx (6-Day Pack, 21 Tabs)] guaiFENesin/CODEINE [Robitussin AC] 10 ml PO TID PRN #120 ml 10/25/21 Unknown Rx Albuterol Sulfate [Proair 90 mcg IH Q4HR PRN #2 aer.pow.ba 11/08/21 Unknown Rx Respiclick] Cetirizine HCl [Zyrtec 10mg tab] 10 mg PO QDAY #30 tablet 11/08/21 Unknown Rx Fluticasone [Flonase] 1 spray NS QDAY #1 bottle 11/08/21 Unknown Rx predniSONE [Deltasone] 40 mg PO QDAY #8 tab 11/08/21 Unknown Rx Allergies Allergy/AdvReac Type Severity Reaction Status Date / Time No Known Allergies Allergy Verified 03/10/22 18:38 ED Review of Systems ROS: Stated complaint: NOLBERTO/CHEST PAIN Other details as noted in HPI Constitutional: denies: chills, fever Eyes: denies: eye pain, eye discharge, vision change ENT: denies: ear pain, throat pain Respiratory: denies: cough, shortness of breath, wheezing Cardiovascular: denies: chest pain, palpitations Endocrine: no symptoms reported Gastrointestinal: denies: abdominal pain, nausea, diarrhea Genitourinary: denies: urgency, dysuria, discharge Musculoskeletal: denies: back pain, joint swelling, arthralgia Skin: denies: rash, lesions Neurological: denies: headache, weakness, paresthesias Psychiatric: denies: anxiety, depression Hematological/Lymphatic: denies: easy bleeding, easy bruising ED Past Medical Hx - Past Medical History Previous Medical History?: Yes Hx Hypertension: No Hx Heart Attack/AMI: No Hx Congestive Heart Failure: No Hx Diabetes: No Hx Deep Vein Thrombosis: No Hx Renal Disease: No Hx Sickle Cell Disease: No Hx Seizures: No Hx Asthma: No Hx COPD: No Hx HIV: No - Surgical History Past Surgical History?: No - Social History Smoking Status: Never Smoker Substance Use Type: None - Medications Home Medications: Home Medications Medication Instructions Recorded Confirmed Last Taken Type Nitrofurantoin [place]/M-Cryst 100 mg PO Q12HR #20 capsule 08/12/19 Unknown Rx [Macrobid CAP] Albuterol Mdi (or & Nicu Only) 2 puff IH QID PRN #8.5 gram 10/25/21 Unknown Rx [ProAir HFA Inhaler] Benzonatate [Tessalon Perles] 100 mg PO Q8HR #21 cap 10/25/21 Unknown Rx Prednisone [predniSONE 10 mg 10 mg PO .TAPER #1 pack 10/25/21 Unknown Rx (6-Day Pack, 21 Tabs)] guaiFENesin/CODEINE [Robitussin AC] 10 ml PO TID PRN #120 ml 10/25/21 Unknown Rx Albuterol Sulfate [Proair 90 mcg IH Q4HR PRN #2 aer.pow.ba 11/08/21 Unknown Rx Respiclick] Cetirizine HCl [Zyrtec 10mg tab] 10 mg PO QDAY #30 tablet 11/08/21 Unknown Rx Fluticasone [Flonase] 1 spray NS QDAY #1 bottle 11/08/21 Unknown Rx predniSONE [Deltasone] 40 mg PO QDAY #8 tab 11/08/21 Unknown Rx ED Physical Exam - General Limitations: No Limitations General appearance: alert, in no apparent distress - Head Head exam: Present: atraumatic, normocephalic - Eye Eye exam: Present: normal appearance - ENT ENT exam: Present: mucous membranes moist - Neck Neck exam: Present: normal inspection - Respiratory Respiratory exam: Present: normal lung sounds bilaterally, wheezes. Absent: respiratory distress - Cardiovascular Cardiovascular Exam: Present: normal rhythm, tachycardia. Absent: systolic murmur, diastolic murmur, rubs, gallop - GI/Abdominal GI/Abdominal exam: Present: soft, normal bowel sounds - Extremities Exam Extremities exam: Present: normal inspection - Back Exam Back exam: Present: normal inspection - Neurological Exam Neurological exam: Present: alert, oriented X3 - Psychiatric Psychiatric exam: Present: normal affect, normal mood - Skin Skin exam: Present: warm, dry, intact, normal color. Absent: rash ED Course Vital Signs 03/10/22 03/10/22 03/10/22 18:32 18:51 19:17 Pulse Rate 138 H 140 H Pulse Rate [ 128 H Bilateral] Respiratory 14 18 Rate Respiratory 28 H Rate [Bilateral ] Blood Pressure 152/96 159/88 [Right] O2 Sat by Pulse 89 99 Oximetry ED Medical Decision Making - Lab Data Result diagrams: 03/10/22 19:11 03/10/22 19:11 - EKG Data -: EKG Interpreted by Me EKG shows normal: sinus rhythm Rate: tachycardia - EKG Data When compared to previous EKG there are: no significant change Critical care attestation.: If time is entered above; I have spent that time in minutes in the direct care of this critically ill patient, excluding procedure time. ED Disposition Clinical Impression: SOB (shortness of breath), Bronchitis Disposition: 01 HOME / SELF CARE / HOMELESS Is pt being admited?: No Does the pt Need Aspirin: No Condition: Stable Instructions: Chronic Bronchitis (ED), Shortness of Breath, Adult, Easy-to-Dipika d, Upper Respiratory Infection, Adult
[2022-03-10 22:01] VITALS: BP 113/66
[2022-03-11] MEDS ORDERED: IPRATROPIUM/ALBUTEROL SULFATE 3 ML AMPUL.NEB IH ONE (05:54)
--- NOTE | 2022-03-11 10:39 | Electrocardiograph Report ---
[facility] Test Date: 2022-03-10 Test Time: 18:59:58 Pat Name: JADE SAINI Department: Room: Gender: F Case Management Assistant: TECH : 2000 Requested By: ANTOINE ESPINOZA Order Number: [id number] Reading MD: Jeovany Hinojosa Measurements Intervals [place] Rate: 129 P: 95 AR: 119 QRS: 36 QRSD: 84 T: 12 QT: 308 QTc: 450 Interpretive Statements Sinus tachycardia Compared to ECG 11/08/2021 06:19:00 Sinus arrhythmia no longer present Electronically Signed On 03-11-2022 10:38:42 EDT by Jeovany Hinojosa
== END 2022-03-10 22:05 | disposition home or self-care (01) ==
LOC: ED 18:28
DX: J40 Bronchitis, not specified as acute or chronic (principal); Z98.890 Other specified postprocedural states; Z79.899 Other long term (current) drug therapy
CPT/HCPCS: 36415; 71045; 80053; 82550; 82553; 83690; 83735; 84484; 85025; 93005; 94644; 96361; 96374; 99284; J2930; J7030